=== PATIENT | female | born 1945 | race Caucasian/White ===

== ENCOUNTER 2020-08-30 18:00 | Emergency (ER) | payer MEDICARE, OTHER ==
[~2020-08-30] VITALS: Ht 162.6 cm; Wt 67.0 kg
--- NOTE | 2020-08-30 18:45 | NUR ---
PT SEEN AT HOME TODAY BY PRIMARY ELECTRONIC SPECIALIST. ELECTRONIC SPECIALIST NOTED PT TO HAVE HIGH HR WITH ARRYTHMIA. PT DENIES ANY CP, SOB, OR ANYTHING OUT OF THE ORDINARY OVER LAST FEW DAYS. PT CONNECTED TO MONITIORING. CALL LIGHT IN REACH. SON AT BEDSIDE.
[2020-08-30] MEDS ORDERED: ZOLP-413 PO (18:53)
[2020-08-30] MEDS ORDERED: ESCI20TA10 PO (18:53)
[2020-08-30] MEDS ORDERED: MONT10TA6 PO (18:53)
[2020-08-30] MEDS ORDERED: LEVO50TA PO (18:53)
[2020-08-30] MEDS ORDERED: FLUT12AE2 INH (18:53)
[2020-08-30] MEDS ORDERED: METHOTREXATE (18:53)
[2020-08-30] MEDS ORDERED: METF500T17 PO (18:53)
[2020-08-30] MEDS ORDERED: FOLI1TAB32 PO (18:53)
[2020-08-30] MEDS ORDERED: INSU100I13 SC (18:53)
[2020-08-30] MEDS ORDERED: BRIM5DRO2 EACHEYE (18:53)
[2020-08-30] MEDS ORDERED: SODIUM CHLORIDE 0.9% 1,000ML IVBOLUS ONE (19:00)
[2020-08-30] MEDS ORDERED: SODIUM CHLORIDE FLUSH 10ML SYR IVF ONE (19:00)
--- NOTE | 2020-08-30 19:00 | NUR ---
REPORT GIVEN TO GARRICK BRIGHT.
[2020-08-30 19:12] LABS: BASOPHILS % (AUTO) 1 % (0-1); EOSINOPHILS % (AUTO) 1 % (1-7); LYMPHOCYTES % (AUTO) 19 % (22-44); MEAN CORPUSCULAR HEMOGLOBIN 32.5 pg (27.0-34.8); MEAN CORPUSCULAR HGB CONC 32.6 g/dL (32.4-35.8); MEAN PLATELET VOLUME 7.7 fL (7.4-10.4); MONOCYTES % (AUTO) 6 % (2-9); NEUTROPHILS % (AUTO) 74 % (42-75); PLATELET COUNT 347 x10^3/uL (130-400); RED BLOOD COUNT 3.51 x10^6/uL (3.82-5.3)
[2020-08-30 19:23] LABS: ALANINE AMINOTRANSFERASE 15 U/L (12-78); ALBUMIN 2.9 g/dL (3.4-5.0); ANION GAP 2 mmol/L (5-15); CALCIUM 8.6 mg/dL (8.5-10.1); CHLORIDE 107 mmol/L (98-107); CREATININE 1.36 mg/dL (0.55-1.02)
[2020-08-30 19:27] LABS: ALKALINE PHOSPHATASE 89 U/L (45-117); BILIRUBIN,TOTAL 0.3 mg/dL (0.2-1.0); TOTAL PROTEIN 7.4 g/dL (6.4-8.2)
[2020-08-30 19:56] LABS: MICROSCOPIC AUTO
--- NOTE | 2020-08-30 19:56 | NUR ---
PT DECLINED STRAIGHT CATH. I HELPED HER TO BEDSIDE CAMMODE AND ASSISTED IN CLEAN CATCH URINE SAMPLE. SENT TO LAB. PIV PLACED AND IVF RUNNING PER EMAR
[2020-08-30 20:19] LABS: TROPONIN I < 0.015 ng/mL (0.000-0.045)
[2020-08-30] MEDS ORDERED: CEFTRIAXONE 1,000 MG in DEXTROSE 5% 50 ML IVPB ONE (21:00)
--- NOTE | 2020-08-30 21:15 | NUR ---
PER DR SPENCER. NO BLOOD CULTURES. ABX STARTED. PT TO CAMMODE A SECOND TIME. PT TO BE DISCHARGED FOLLOWING ABX
[2020-08-30 21:54] VITALS: BP 128/72
== END 2020-08-30 22:03 | disposition home or self-care (01) ==
LOC: ED 20:40
DX: E86.0 Dehydration (principal); N28.9 Disorder of kidney and ureter, unspecified; N30.00 Acute cystitis without hematuria; R00.0 Tachycardia, unspecified; E03.9 Hypothyroidism, unspecified; E11.9 Type 2 diabetes mellitus without complications
CPT/HCPCS: 36415; 71045; 80053; 81001; 83880; 84484; 85025; 87086; 93005; 96365; 99285; J0696; J7030; 96361

== ENCOUNTER 2020-11-12 11:52 | Emergency (ER) | payer MEDICARE ==
[~2020-11-12] VITALS: Ht 162.6 cm; Wt 67.0 kg
[~2020-11-12 11:52] MED LIST: BRIM5DRO2 EACHEYE; ESCI20TA10 PO; FLUT12AE2 INH; FOLI1TAB32 PO; INSU100I13 SC; LEVO50TA PO; METF500T17 PO; METHOTREXATE; MONT10TA6 PO; ZOLP-413 PO
[2020-11-12 12:57] LABS: BASOPHILS % (AUTO) 1 % (0-1); EOSINOPHILS % (AUTO) 5 % (1-7); LYMPHOCYTES % (AUTO) 26 % (22-44); MEAN CORPUSCULAR HEMOGLOBIN 32.5 pg (27.0-34.8); MEAN CORPUSCULAR HGB CONC 33.2 g/dL (32.4-35.8); MEAN PLATELET VOLUME 8.7 fL (7.4-10.4); MONOCYTES % (AUTO) 8 % (2-9); NEUTROPHILS % (AUTO) 61 % (42-75); PLATELET COUNT 264 x10^3/uL (130-400); RED BLOOD COUNT 3.76 x10^6/uL (3.82-5.3); RED CELL DISTRIBUTION WIDTH 12.5 % (9.6-15.2)
[2020-11-12] MEDS ORDERED: KETOROLAC 30 MG/1 ML IM ONE (13:00)
[2020-11-12] MEDS ORDERED: KETOROLAC 30 MG/1 ML ONE (13:05)
[2020-11-12 13:10] LABS: ALANINE AMINOTRANSFERASE 21 U/L (12-78); ALBUMIN 2.9 g/dL (3.4-5.0); ANION GAP 2 mmol/L (5-15); CHLORIDE 109 mmol/L (98-107); CREATININE 1.12 mg/dL (0.55-1.02)
[2020-11-12 13:14] LABS: ALKALINE PHOSPHATASE 87 U/L (45-117); BILIRUBIN,TOTAL 0.4 mg/dL (0.2-1.0); TOTAL PROTEIN 7.3 g/dL (6.4-8.2); TROPONIN I < 0.015 ng/mL (0.000-0.045)
--- NOTE | 2020-11-12 14:16 | NUR ---
with reassessment left shoulder pain improved to 3/10. ERp to bedside to explain poc
[2020-11-12 14:17] VITALS: BP 128/73
--- NOTE | 2020-11-12 14:28 | NUR ---
MARIBEL RN: DISCHARGED FOR PRIMARY RN.
== END 2020-11-12 14:30 | disposition home or self-care (01) ==
LOC: ED 12:22
DX: M19.012 Primary osteoarthritis, left shoulder (principal); I10 Essential (primary) hypertension; E11.9 Type 2 diabetes mellitus without complications
CPT/HCPCS: 36415; 71045; 73030; 80053; 83605; 84145; 84484; 85025; 87040; 93005; 96372; 99285; J1885